=== PATIENT | male | born 1965 | race Caucasian/White ===

== ENCOUNTER 2017-10-23 05:36 | Emergency (ER) | payer SELFPAY ==
[~2017-10-23] VITALS: Ht 175.3 cm; Wt 87.0 kg
[2017-10-23 05:41] VITALS: BP 138/75; PULSE 96; RESP 20; TEMP 98.4; O2SAT 100
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
[2017-10-23] MEDS ORDERED: SODIUM CHLORID 0.9% 500 ML INJ 500 ML IV ONE (06:00)
[2017-10-23] MEDS ORDERED: SODIUM CHLORIDE 0.9% FLUSH 10 ML FLUSH IVF PRN (06:00)
[2017-10-23] MEDS ORDERED: ASPIRIN 81 MG CHEW TAB PO ONE (06:00)
[2017-10-23] MEDS ORDERED: NITROGLYCERIN 2% OINT 1 GM PACKET TOPICAL ONE (06:00)
[2017-10-23 06:25] LABS: AUTOMATED NEUTROPHIL # 7.3 TH/MM3 (1.8-7.7); BASOPHIL % 0.5 % (0.0-2.0); EOSINOPHIL % 0.2 % (0.0-4.0); HEMATOCRIT 39.8 % (39.0-51.0); HEMO FLAGS DIFF FINAL; LYMPH % 13.5 % (9.0-44.0); LYMPHOCYTE # 1.3 TH/MM3 (1.0-4.8); MEAN CELL VOLUME 87.6 FL (80.0-100.0); MEAN CORPUSCULAR HEMOGLOBIN 30.4 PG (27.0-34.0); MEAN CORPUSCULAR HGB CONC 34.7 % (32.0-36.0); MONO % 8.1 % (0.0-8.0); NEUT % 77.7 % (16.0-70.0); PLATELET COUNT 226 TH/MM3 (150-450); RED BLOOD COUNT 4.54 MIL/MM3 (4.50-5.90); RED CELL DISTRIBUTION WIDTH 12.9 % (11.6-17.2); WHITE BLOOD COUNT 9.4 TH/MM3 (4.0-11.0)
[2017-10-23 06:39] LABS: ALT (GPT) 240 U/L (12-78); ANION GAP 9 MEQ/L (5-15); AST (GOT) 270 U/L (15-37); BICARBONATE 24.7 MEQ/L (21.0-32.0); BLOOD UREA NITROGEN 26 MG/DL (7-18); CHLORIDE 105 MEQ/L (98-107); GLOMERULAR FILTRATION RATE 80 ML/MIN (>89); MAGNESIUM 2.1 MG/DL (1.5-2.5); POTASSIUM 3.5 MEQ/L (3.5-5.1); SODIUM (NA) 139 MEQ/L (136-145)
[2017-10-23 06:43] LABS: APTT (PATIENT) 24.7 SEC (24.3-30.1); INTERNATIONAL NORMALIZED RATIO 1.1 RATIO; PROTHROMBIN TIME - PATIENT 10.8 SEC (9.8-11.6)
[2017-10-23 06:53] LABS: ALKALINE PHOSPHATASE 80 U/L (45-117); CREATINE KINASE 4382 U/L (39-308); TOTAL BILIRUBIN ADULT 1.2 MG/DL (0.2-1.0)
[2017-10-23 07:05] LABS: CKMB 22.2 NG/ML (0.5-3.6)
--- NOTE | 2017-10-23 19:33 | EKG ---
Date Performed: 10/23/2017 Time Performed: 05:44:17 PTAGE: 52 years EKG: Sinus rhythm NONSPECIFIC T-WAVE ABNORMALITY Since previous tracing, no significant change noted BORDERLINE ECG PREVIOUS TRACING : 02/19/2016 12.38 DOCTOR: Ari Vazquez Interpretating Date/Time 10/23/2017 19:33:24
== END 2017-10-23 07:25 | disposition left against medical advice (07) ==
LOC: NEPE 05:36
DX: R07.9 Chest pain, unspecified (principal); M62.82 Rhabdomyolysis; R79.89 Other specified abnormal findings of blood chemistry; F15.90 Other stimulant use, unspecified, uncomplicated; R00.0 Tachycardia, unspecified; R06.02 Shortness of breath; F31.9 Bipolar disorder, unspecified; F41.9 Anxiety disorder, unspecified; F17.220 Nicotine dependence, chewing tobacco, uncomplicated
CPT/HCPCS: 80053; 82550; 82552; 83690; 83735; 83880; 84484; 85025; 85610; 85730; 93005; 99285

== ENCOUNTER 2017-11-22 23:12 | Emergency (ER) | payer SELFPAY ==
[~2017-11-22] VITALS: Ht 170.2 cm; Wt 87.0 kg
[2017-11-22 23:15] VITALS: BP 146/88; PULSE 112; RESP 16; O2SAT 99
== END 2017-11-22 23:30 | disposition left against medical advice (07) ==
LOC: NEPE 23:12
DX: Z04.3 Encounter for examination and observation following other accident (principal)
CPT/HCPCS: 99281